=== PATIENT | female | born 1935 | race Caucasian/White ===

== ENCOUNTER 2017-10-12 17:32 | Emergency (ER) | payer OTHER ==
--- NOTE | 2017-10-12 19:53 | EDPHY ---
H & P Time Seen by Provider: 10/12/17 18:46 HPI/ROS: CHIEF COMPLAINT: Left shoulder injury HISTORY OF PRESENT ILLNESS: 82-year-old female presents to the emergency department with injury to her left shoulder. The patient states that yesterday she was using her left hand reach around to rub some ointment on her right side of her back. She felt pain in her left shoulder immediately. Since that time it has felt "puffy "and she is having pain with range of motion. She denies any other trauma or injury. She denies directly falling on her shoulder. Denies hitting her head or losing consciousness. She is right-hand dominant. She complains of isolated pain in the left shoulder which is especially worse with movement. REVIEW OF SYSTEMS: Constitutional: No fever, no chills. Eyes: No double or blurry vision. ENT: No sore throat. Respiratory: No cough, no shortness of breath. Cardiac: No chest pain. Gastrointestinal: No abdominal pain, vomiting or diarrhea. Genitourinary: No dysuria. Musculoskeletal: No neck or back pain. Skin: No rashes. Neurological: No headache. Past Medical/Surgical History: Osteoarthritis, hypothyroidism Social History: and lives in [place] Smoking Status: Never smoked Physical Exam: General Appearance: Alert, no distress. Eyes: Pupils equal and round. Extraocular motions are all intact. ENT: Mouth: Mucous membranes moist. Respiratory: No wheezing, rhonchi, or rales, lungs are clear to auscultation. Cardiovascular: Regular rate and rhythm. Gastrointestinal: Abdomen is soft and nontender, no masses, no rebound or guarding, bowel sounds normal. Neurological: Alert and oriented x 3, cranial nerves II through XII grossly intact Skin: Warm and dry, no rashes. Musculoskeletal: Nontender to palpate along the cervical, thoracic or lumbar spine. Neck is supple. Extremities: Limited range of motion of the left shoulder secondary to pain. She has pain with palpation especially over the left humeral head. No palpable crepitus noted. There is swelling noted overlying the humeral head. No abrasions or puncture wounds. Normal sensation to light touch with normal 2 point discrimination. Strong radial pulse at the left wrist. Full range of motion of the right upper extremity. Psychiatric: Patient is oriented X 3, there is no agitation. Constitutional: Initial Vital Signs Temperature (C) 37.0 C 10/12/17 17:36 Heart Rate 82 10/12/17 17:36 Respiratory Rate 16 10/12/17 17:36 Blood Pressure 115/90 H 10/12/17 17:36 O2 Sat (%) 95 10/12/17 17:36 O2 Delivery Mode Room Air Allergies/Adverse Reactions: No Known Allergies Allergy (Unverified 09/05/12 09:55) Home Medications: Medication Instructions Recorded Levothyroxine 10/12/17 Medical Decision Making - Diagnostics Imaging Results: Imaging Impressions Shoulder X-Ray 10/12/17 17:39 Impression: 1. 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 2. Moderate acromioclavicular arthrosis. Findings discussed with Shasta Owens PA-C on October 12, 2017 at 2020 hours. Imaging: Discussed imaging studies w/ call worker Radiologist, I viewed and interpreted images myself ED Course/Re-evaluation: 82-year-old female presents to the emergency department with shoulder injury. X- rays reveal possible left humeral head fracture versus possible arthritic changes. This was also discussed with the radiologist. 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 She was given orthopedic referral. Her daughter was at bedside. Differential Diagnosis: Including but not limited to fracture, dislocation, contusion, sprain Departure - Departure Disposition: Home, Routine, Self-Care Clinical Impression: Fracture of humeral head, left, closed Qualifiers: Encounter type: initial encounter Qualified Code(s): S42.292A - Other displaced fracture of upper end of left humerus, initial encounter for closed fracture Condition: Good Instructions: Arm Fracture in Adults (ED) Additional Instructions: Sling for comfort and support. Ibuprofen 400 mg every 8 hr as needed for pain. Ice to help relieve swelling and pain. Follow up with orthopedic surgeon next week to recheck. Referrals: Sonya Bar MD [Medical Doctor] - 2-3 days without fail (On-call orthopedic surgeon)
[2017-10-12 20:25] VITALS: BP 137/78; PULSE 84; RESP 18; TEMP 98.1; O2SAT 97
== END 2017-10-12 20:25 | disposition home or self-care (01) ==
DX: S42.292A Other displaced fracture of upper end of left humerus, initial encounter for closed fracture (principal); X58.XXXA Exposure to other specified factors, initial encounter

== ENCOUNTER 2019-02-12 08:35 | Emergency (ER) | payer OTHER | END 2019-02-12 09:25 | disposition home or self-care (01) ==